=== PATIENT | female | born 1940 | race Asian ===

== ENCOUNTER 2016-12-26 20:08 | Outpatient (CLI) | payer MEDICARE, OTHER | END 2016-12-26 20:09 | disposition home or self-care (01) | DX: K86.2 Cyst of pancreas (principal) ==

== ENCOUNTER 2017-01-10 15:26 | Outpatient (CLI) | payer MEDICARE, OTHER | END 2017-01-10 15:27 | disposition home or self-care (01) | DX: R05 Cough (principal); R06.2 Wheezing ==

== ENCOUNTER 2017-02-26 10:31 | Outpatient (CLI) | payer MEDICARE, OTHER | END 2017-02-26 10:32 | disposition home or self-care (01) | DX: Z12.31 Encounter for screening mammogram for malignant neoplasm of breast (principal) ==

== ENCOUNTER 2018-04-08 08:37 | Outpatient (CLI) | payer MEDICARE, OTHER ==
--- NOTE | 2018-04-10 15:23 | Mammography Report ---
Procedure Date: 04/08/2018 Accession Number: [id number] / [id number] Procedure: MGS - Screening Mammo Dig Bilat CPT Code: FULL RESULT: EXAM: Screening Mammo Dig Bilat DATE: 04/08/2018 8:54 AM CLINICAL HISTORY: 77-year-old for screening TECHNIQUE: Bilateral CC and MLO views were obtained. COMPARISON: 02/26/2017, 10/03/2015, 10/04/2014, 12/27/2011 FINDINGS: The breasts demonstrate heterogeneously dense fibroglandular parenchyma bilaterally. Coarse and punctate, typically benign calcifications are present. No suspicious masses, clustered microcalcifications, or regions of architectural distortion are identified. IMPRESSION: Benign findings RECOMMENDATION: Routine annual screening unless otherwise clinically indicated. BIRADS CATEGORY 2: Benign findings STANDARD QUALIFYING STATEMENTS: 1. This examination was reviewed with the aid of Computer-Aided Detection (CAD). 2. A negative or benign imaging report should not delay biopsy if clinically suspicious findings are present. Consider surgical consultation if warrented. More than 5% of cancers are not identified by imaging. 3. Dense breasts may obscure an underlying neoplasm.
== END 2018-04-08 08:38 | disposition home or self-care (01) ==
LOC: DI.S 08:37
PROVIDERS: ATTEND Physician Assistant
DX: Z12.31 Encounter for screening mammogram for malignant neoplasm of breast (principal)
CPT/HCPCS: 77067

== ENCOUNTER 2019-04-07 15:02 | Outpatient (CLI) | payer MEDICARE, OTHER ==
--- NOTE | 2019-04-07 15:28 | XRAY Report ---
Reason: PAIN IN RIGHT FOOT Procedure Date: 04/07/2019 Accession Number: [id number] / [id number] Procedure: XR - Foot 3 View RT CPT Code: FULL RESULT: EXAM: RIGHT FOOT RADIOGRAPHY EXAM DATE: 04/07/2019 03:17 PM. CLINICAL HISTORY: PAIN AND NUMBNESS IN RIGHT FOOT. COMPARISON: None. TECHNIQUE: 3 views. FINDINGS: Bones: No focal bone lesion or fracture. Joints: Minimal hallux valgus with mild associated first MTP joint arthritic changes. Soft Tissues: Normal. No soft tissue swelling. IMPRESSION: No acute abnormality. RADIA
== END 2019-04-07 15:03 | disposition home or self-care (01) ==
LOC: DI 15:02
PROVIDERS: ATTEND Nurse Practitioner Family
DX: M79.671 Pain in right foot (principal)

== ENCOUNTER 2019-04-15 08:43 | Outpatient (CLI) | payer MEDICARE, OTHER ==
--- NOTE | 2019-04-16 10:40 | DEXA Report ---
Reason: ASYMPTOMATIC MENOPAUSAL STATE Procedure Date: 04/15/2019 Accession Number: [id number] / [id number] Procedure: DEX - Dexa Spine and/or Hip CPT Code: FULL RESULT: EXAM: Dexa Spine and/or Hip DATE: 04/15/2019 9:47 AM CLINICAL HISTORY: ASYMPTOMATIC MENOPAUSAL STATE TECHNIQUE: Dual energy x-ray absorptiometry (DXA) was performed on a [employer] System. Regions measured are the AP Spine, femoral neck, and if needed forearm. COMPARISON: None. In accordance with the International Society for Clinical Densitometry (ISCD) guidelines, data from previous exams may be reanalyzed using current recommendations and techniques. This is done to allow a more accurate basis for comparison with the current study. FINDINGS: The data for the lumbar spine is as follows: BMD (g/cm/cm) T-SCORE Z-SCORE REGION L1 1.094 -0.3 1.8 L2 1.255 0.5 2.6 L3 1.421 1.8 4.0 L4 1.323 1.0 3.1 TOTAL 1.278 0.8 2.9 NOTE: All evaluable vertebrae are used for classification The data for the hip is as follows: BMD (g/cm/cm) T-SCORE Z-SCORE REGION Neck 0.870 -1.2 1.0 TOTAL 0.941 -0.5 1.6 NOTE: The femoral neck or total proximal femur, whichever is lowest, is used for classification. IMPRESSION: THE WHO CLASSIFICATION BASED ON THE INTERNATIONAL REFERENCE STANDARD IS OSTEOPENIA. THE FRACTURE RISK IS INCREASED. RECOMMENDATION: Patients with diagnosis of osteoporosis or osteopenia should have regular bone mineral density assessment. For those eligible for Medicare, routine testing is allowed once every 2 years. Testing frequency can be increased for patients who have rapidly progressing disease or for those who are receiving medical therapy to restore bone mass. COMMENT: World Health Organization (WHO) definitions for osteoporosis and osteopenia: NORMAL BMD: T-score at -1.0 or higher, fracture risk is low OSTEOPENIA BMD: T-score between -1.0 and -2.5, fracture risk is increased. OSTEOPOROSIS BMD: T-score at -2.5 or lower, fracture risk is high. National Osteoporosis Foundation recommends: 1. Obtain adequate dietary calcium (at least 1200 mg per day) and vitamin D (400-800 international units per day). 2. Participate, as appropriate, in regular weightbearing and muscle-strengthening exercise. 3. Avoid tobacco use and reduce alcohol and caffeine intake. 4. For more detailed information see the website at www.NOF.org.
== END 2019-04-15 08:44 | disposition home or self-care (01) ==
LOC: DI 08:43
PROVIDERS: ATTEND Physician Assistant
DX: M85.89 Other specified disorders of bone density and structure, multiple sites (principal); Z78.0 Asymptomatic menopausal state
CPT/HCPCS: 77080

== ENCOUNTER 2019-04-15 08:45 | Outpatient (CLI) | payer MEDICARE, OTHER ==
--- NOTE | 2019-04-15 11:09 | Mammography Report ---
Reason: ENCOUNTER FOR SCREENING MAMMOGRAM FOR MALIGNANT NE Procedure Date: 04/15/2019 Accession Number: [id number] / [id number] Procedure: SHAKEEL - Screening Mammo w/Rob CPT Code: FULL RESULT: EXAM: Screening Mammo w/Rob DATE: 04/15/2019 9:49 AM CLINICAL HISTORY: Screening encounter. No reported risk factors. TECHNIQUE: (B) - Bilateral CC and MLO views were obtained. COMPARISON: 04/08/2018 through 10/04/2014. PARENCHYMAL PATTERN: (D) - The breast(s) demonstrate(s) heterogeneously dense fibroglandular parenchyma. FINDINGS: There are coarse typically benign calcifications. There are no suspicious masses, calcifications, or areas of distortion. IMPRESSION: Benign findings. BI-RADS category 2. RECOMMENDATION: (ANNUAL) - Recommend routine annual screening mammography. BI-RADS CATEGORY: (2) - Benign Findings. STANDARD QUALIFYING STATEMENTS: 1. This examination was not reviewed with the aid of Computer-Aided Detection (CAD). 2. A negative or benign imaging report should not preclude biopsy if clinically suspicious findings are present. 3. Dense breasts may obscure an underlying neoplasm. 4. This examination was reviewed with the aid of 3D breast imaging (tomosynthesis).
== END 2019-04-15 08:46 | disposition home or self-care (01) ==
LOC: DI 08:45
PROVIDERS: ATTEND Physician Assistant
DX: Z12.31 Encounter for screening mammogram for malignant neoplasm of breast (principal)
CPT/HCPCS: 77063; 77067

== ENCOUNTER 2019-04-21 07:14 | Outpatient (CLI) | payer MEDICARE, OTHER ==
--- NOTE | 2019-04-21 12:54 | Ultrasound Report ---
Reason: CYST OF PANCREAS Procedure Date: 04/21/2019 Accession Number: [id number] / [id number] Procedure: US - Abdomen Limited CPT Code: FULL RESULT: EXAM: ABDOMEN ULTRASOUND LIMITED, RUQ EXAM DATE: 04/21/2019 08:00 AM. CLINICAL HISTORY: Cyst of pancreas. COMPARISON: ABDOMEN LIMITED 12/26/2016 8:24 PM ABDOMEN/PELVIS W/ 07/14/2016 12:35 PM. TECHNIQUE: Real-time scanning was performed with static images obtained. FINDINGS: Liver: Liver parenchyma is mildly coarse with somewhat increased echogenicity which can limit evaluation for underlying masses, no mass is seen. Liver measures at least 12.7 cm. Main portal vein flow: Hepatopetal. Gallbladder: Normal. No stones, wall thickening, or sonographic Clinton's sign. Biliary System: CBD measures 4 mm. No intrahepatic or extrahepatic ductal dilatation. Other: A 0.6 cm well-circumscribed cystic structure in the region of the head of the pancreas is not enlarged when compared to the 2016 CT and accounting for differences in modality, the finding is nonspecific. This is also stable compared to the more recent ultrasound. IMPRESSION: 0.6 cm cystic lesion in the region of the head of the pancreas, no concerning interval change compared to [address] CT. Recommendation: Would perform next follow-up imaging by MRI to allow for characterization of the relationship to the pancreatic duct with further follow-up as per ACG guidelines. Consider MRI with MRCP in one year. Mildly increased echogenicity and coarsening of the hepatic parenchyma echotexture, this is nonspecific but can be seen with steatosis. RADIA
== END 2019-04-21 07:15 | disposition home or self-care (01) ==
LOC: DI 07:14
PROVIDERS: ATTEND Physician Assistant
DX: K86.2 Cyst of pancreas (principal)
CPT/HCPCS: 76705

== ENCOUNTER 2020-05-12 14:55 | Outpatient (CLI) | payer MEDICARE, OTHER | END 2020-05-12 23:59 | disposition home or self-care (01) | LOC: COV 14:55 | PROVIDERS: ATTEND Family Medicine | DX: Z11.59 Encounter for screening for other viral diseases (principal) ==

== ENCOUNTER 2022-08-16 08:00 | Outpatient (CLI) | payer MEDICARE, OTHER | END 2022-08-16 23:59 | disposition home or self-care (01) | LOC: LAB.S 08:00 | PROVIDERS: ATTEND Physician Assistant | DX: R30.0 Dysuria (principal) | CPT/HCPCS: 87086; 87181 ==

== ENCOUNTER 2023-04-16 15:25 | Outpatient (CLI) | payer MEDICARE, OTHER ==
--- NOTE | 2023-04-17 11:59 | XRAY Report ---
PROCEDURE: Hip w/Pelvis 2-3V RT INDICATIONS: HIP JOINT PAIN TECHNIQUE: AP pelvis with lateral view(s) of the right hip(s). COMPARISON: X-ray right hip, 02/02/2016. FINDINGS: Bones: There are 3 surgical screws traversing the femoral neck, unchanged compared to the last exam. No acute fracture or dislocations. No suspicious bony lesions. Mild degenerative joint disease in hips and sacrum iliac joints bilaterally. Soft tissues: No suspicious soft tissue calcifications or masses. IMPRESSION: 1. No acute bony abnormality. 2. Stable postsurgical changes. 3. Mild degenerative joint disease. Reviewed by: Alvarez Fofana MD on 04/17/2023 11:57 AM PDT Approved by: Alvarez Fofana MD on 04/17/2023 11:57 AM PDT Station ID: [id number]
== END 2023-04-16 15:26 | disposition home or self-care (01) ==
LOC: DI.S 15:25
PROVIDERS: ATTEND Internal Medicine
DX: M16.11 Unilateral primary osteoarthritis, right hip (principal)

== ENCOUNTER 2023-04-17 09:46 | Outpatient (CLI) | payer MEDICARE, OTHER ==
[2023-04-17 14:43] LABS: BASOPHILS # (AUTO) 0.1 10^3/uL (0.0-0.1); BASOPHILS % (AUTO) 1.4 %; EOSINOPHILS # (AUTO) 0.2 10^3/uL (0.0-0.7); EOSINOPHILS % (AUTO) 5.7 %; HCT - HEMATOCRIT 38.6 % (37.0-47.0); HGB - HEMOGLOBIN 12.7 g/dL (12.0-16.0); LYMPHOCYTES # (AUTO) 1.6 10^3/uL (1.5-3.5); LYMPHOCYTES % (AUTO) 44.9 %; MEAN CORPUSCULAR HEMOGLOBIN 31.3 pg (27.0-31.0); MEAN CORPUSCULAR HGB CONC 32.9 g/dL (32.0-36.0); MEAN CORPUSCULAR VOLUME 95.1 fL (81.0-99.0); MONOCYTES # (AUTO) 0.3 10^3/uL (0.0-1.0); MONOCYTES % (AUTO) 8.8 %; NEUTROPHILS # (AUTO) 1.4 10^3/uL (1.5-6.6); NEUTROPHILS % (AUTO) 38.9 %; PLT - PLATELET COUNT 225 10^3/uL (130-450); RED BLOOD COUNT 4.06 10^6/uL (4.20-5.40); RED CELL DISTRIBUTION WIDTH 12.9 % (12.0-15.0); WHITE BLOOD COUNT 3.5 x10^3/uL (4.8-10.8)
[2023-04-17 15:10] LABS: % IRON SATURATION 38 % (20-50); IRON 142 ug/dL (28-170); TOTAL IRON BINDING CAPACITY 372 ug/dL (250-450); TRANSFERRIN 266 mg/dL (192-382)
== END 2023-04-17 09:47 | disposition home or self-care (01) ==
LOC: LAB.S 09:46
PROVIDERS: ATTEND Internal Medicine
DX: R30.0 Dysuria (principal); R39.15 Urgency of urination; R40.0 Somnolence; R06.83 Snoring; M25.551 Pain in right hip; M25.511 Pain in right shoulder; L50.8 Other urticaria
CPT/HCPCS: 36415; 82728; 83540; 84466; 85025

== ENCOUNTER 2023-06-11 12:55 | Outpatient (CLI) | payer MEDICARE, OTHER ==
--- NOTE | 2023-06-11 13:58 | Sleep Patient Instructions ---
Sleep Center Visit Summary - Patient Visit Information Reason for Visit: Initial consult for evaluation of sleep disordered breathing and other sleep issues. - Patient Instructions Instructions Attached: Sleep Study, Sleep Clinic Visit Additional Instructions: You will be completing a sleep study, either an in-lab polysomnography (PSG) or home sleep study (HST). You will follow-up in the sleep care office after the sleep study is completed to hear the results and talk about therapy, if needed. You will be called by our office staff to schedule this appointment, but you may contact us with any questions. - Clinic Information Contact: [facility] [address] [place] [address] [email or web address] T: [phone]
--- NOTE | 2023-06-11 14:05 | SLEEP CARE CONSULTATION ---
Information from patient questionnaire entered by Dede North. I have reviewed and concur with the information entered by Dede North. This document represents the service I personally performed and the decisions made by me, Carolyne Pablo ARNP. History of Present Illness Service Date and Time: 06/11/2023 1255 Reason for Visit: New patient Chief Complaint: reports: Snoring, Observed pauses in breathing, Frequent awakenings at night Date of Onset: 2YRS Usual bedtime: 10-11PM Time it takes to fall asleep: WITHIN 15MIN Snores at night: Yes Observed to quit breathing while asleep: Yes Sleeps alone due to snoring: No Number of times waking at night: 3-4 Reasons for waking at night: reports: Other (UNKNOWN). denies: Choking, Snoring, Gasping for air Toss, Turn, or Twitch while sleeping: No Recalls having dreams: Yes Usually gets out of bed at: 630-7AM Feels refreshed in the morning: Yes Morning headache: No Sleepy or fatigued during the day: No Ever fallen asleep while driving: No Takes day naps: Yes (10-15 minutes, 2 times a week) Dreams during day naps: No Prior sleep studies: No Additional HPI information: I had the pleasure of seeing MARLENY ACOSTA today regarding the possibility of her having a sleep disorder. Her current complaints are frequent night awakenings, snoring and observed pauses in breathing. She states her started telling her that she would "jerk" in her sleep, she snores when she is sleeping on her back. She states she does not snore when sleeping on her sides. She told her PCP and was referred here. She states she will go right to sleep, but she will awakening from 11:30 to 0300 will wake up frequently. After that she sleeps well the rest of the night. She would like to be able to sleep through the night. She does not hear her self snoring. She does not know what is waking her up. Lately, she finds she is grinding her teeth. She is under a lot of stress due to her husbands health. - Parasomnia Symptoms Ever been unable to move upon waking from sleep: No Walks in sleep: No Talks in sleep: No Ever acted out dreams in sleep: No Ever felt weak in the knees when startled or emotional: No Bothered by creepy, crawly, restless sensations in legs: No Problems with memory or concentration: No Subjective Initial [place] Sleepiness Scale score: 7 (06/10/23) Past Medical History Past Medical History: reports: Arthritis, Other (Grave's in remission) Social History The patient's occupation is a RETIRED. Patient is and lives in [place]. Have you smoked in the past 12 months: No Alcohol use: Yes Alcohol amount and frequency: AVG 1 GLASS A DAY Caffeine use: Yes Caffeine amount and frequency: 1 CUP A DAY Family History Family history of sleep disordered breathing: No Allergies and Home Medications Known drug allergies: No Drug allergies reviewed: Yes Home medication list reviewed: Yes (no daily medications) Allergy and home medication list: Allergies No Known Drug Allergies Allergy (Verified 06/10/23 11:11) Supplements: Multivitamins [place] Fish oil Probiotic Digestive enzymes Turmeric/[place] Review of Systems Cardiovascular: denies: high blood pressure Respiratory: denies: shortness of breath Gastrointestinal: denies: heartburn Neurological: denies: headaches Psychiatric: denies: anxiety, depression Ear/Nose/Throat: denies: tonsillectomy Endocrine: reports: thyroid disease (graves in remission) Musculoskeletal: reports: joint pain Immunologic: reports: sneezing, rash, itching Physical Exam Vital signs obtained and entered by: DEDE Santos MA Blood Pressure: 124/68 (LEFT ARM) Cuff size: regular Heart Rate: 66 O2 Saturation: 98 Height: 5 ft 4 in Weight: 122 lb 12.8 oz Body Mass Index: 21.0 BMI Classification: Normal Neck circumference: 14 Mouth and throat: narrow oropharynx Soft palate: long Hard palate: normal Uvula: normal Uvula visualization: 50% Mallampati Class II Tongue: enlarged in size with teeth sheikh on lateral edges Tonsils: small Neck: normal w/o lymphadenopathy or thyromegaly Heart: regular rate and rhythm Lungs: wheeze (right middle lobe; otherwise clear) Impression and Plan 1. Suspected Obstructive Sleep Apnea-Hypopnea Syndrome, as suggested by a history of loud and irregular snoring, observed cessation of breath while asleep and frequent awakening during the night. Narrow oropharynx and obesity are common predisposing factors for obstructive sleep apnea-hypopnea syndrome. I recommend proceeding to polysomnography to confirm the diagnosis and to assess severity. Patient is concerned that she may not sleep the night of the sleep study. I offered a one time dose of Zolpidem 5 mg for the night of the study and she agreed. She states she has not taken this medication in the past. She has not drug allergies. If the patient has significant sleep disordered breathing, a manual CPAP titration study will also be performed to find the optimal treatment pressure. I informed the patient of what the sleep studies involve and after some discussion, obtained agreement to proceed. The pathophysiology of obstructive sleep apnea-hypopnea syndrome was discussed with the patient and health risks of cardiovascular and cerebrovascular disease if not treated. 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 Patient agreed to plan. * Schedule polysomnography. * Prescription for 5 mg Zolpidem for sleep for night of sleep study * Avoid long distance driving or driving when feeling sleepy. * Avoid alcohol, sedative and muscle relaxant around bedtime. * Review instructions provided by trained office staff on how to prepare for the sleep study. * Return for follow-up after sleep study completed. Prescriptions: Other (Zolpidem 5 mg for night of sleep study) Visit Type: In Office Time Spent with Patient (minutes): 35 Provider Statement: I spent 100% of the Face to Face Visit with the patient with greater than 50% spent counseling the patient and coordination of care.
[2023-06-11 14:06] VITALS: BP 124/68; O2SAT 98
== END 2023-06-11 12:56 | disposition home or self-care (01) ==
LOC: SC 12:55
PROVIDERS: ATTEND Nurse Practitioner Family
DX: G47.8 Other sleep disorders (principal); R06.83 Snoring; R06.81 Apnea, not elsewhere classified
CPT/HCPCS: 99203; G0463; 99212

== ENCOUNTER 2024-05-25 09:06 | Outpatient (CLI) | payer MEDICARE, OTHER ==
--- NOTE | 2024-05-25 09:51 | XRAY Report ---
PROCEDURE: Hip w/Pelvis 2-3V RT INDICATIONS: RIGHT HIP PAIN TECHNIQUE: AP view of the pelvis, frog-leg view of the right hip COMPARISON: Pelvis and right hip x-rays 04/16/2023 FINDINGS: Diffuse osseous demineralization, which limits the assessment of fractures. No interval fracture or d islocation. Status post prior percutaneous cannulated screw fixation of the right hip without hardware competitio n Mild bilateral sacroiliac joint, lower lumbar, and left hip osteoarthritis. IMPRESSION: Status post right hip screw fixation without hardware complication. No interval change. Reviewed by: Nabor Alvarado MD on 05/25/2024 9:49 AM PDT Approved by: Nabor Alvarado MD on 05/25/2024 9:49 AM PDT Station ID: [id number]
--- NOTE | 2024-05-25 09:53 | XRAY Report ---
PROCEDURE: Knee 1-2V RT INDICATIONS: RIGHT KNEE PAIN TECHNIQUE: Standing AP views of the knees, lateral view of the left knee COMPARISON: None. FINDINGS: Diffuse osseous demineralization. Status post left ACL reconstruction with tibial screw and femoral c lip in place. No hardware complication. Mild medial compartment joint space narrowing and osteophyte formation. Small suprapatellar recess effusion. Quadriceps enthesopathy on the superior pole of the p atella. No new fracture or dislocation. Survey views of the right knee are within normal limits. IMPRESSION: No acute abnormality of the right knee. Reviewed by: Nabor Alvarado MD on 05/25/2024 9:52 AM PDT Approved by: Nabor Alvarado MD on 05/25/2024 9:52 AM PDT Station ID: [id number]
== END 2024-05-25 09:07 | disposition home or self-care (01) ==
LOC: DI.S 09:06
DX: M16.12 Unilateral primary osteoarthritis, left hip (principal); M47.816 Spondylosis without myelopathy or radiculopathy, lumbar region; M47.898 Other spondylosis, sacral and sacrococcygeal region; M25.561 Pain in right knee; M25.551 Pain in right hip; G89.29 Other chronic pain